=== PATIENT | female | born 1970 | race Caucasian/White ===

== ENCOUNTER → 2018-05-21 | Outpatient (CLI) | payer OTHER ==
[2018-05-21 09:38] LABS: FREE T4 0.89 NG/DL (0.76-1.46)
[2018-05-21 09:45] LABS: PROLACTIN 7.4 NG/ML
== END ==
LOC: M WUC 08:06
DX: N92.6 Irregular menstruation, unspecified (principal)

== ENCOUNTER → 2018-06-20 | Outpatient (CLI) | payer OTHER ==
[2018-06-20 17:27] LABS: TOTAL T3 117.7 NG/DL (60.0-181.0)
[2018-06-20 17:31] LABS: FREE T4 1.01 NG/DL (0.76-1.46)
== END ==
LOC: M WUC 14:09
DX: E04.1 Nontoxic single thyroid nodule (principal)
CPT/HCPCS: 84443

== ENCOUNTER → 2018-08-22 | Outpatient (CLI) | payer OTHER ==
[2018-08-22 16:27] LABS: MAGNESIUM LEVEL 2.3 MG/DL (1.8-2.4)
[2018-08-22 16:42] LABS: TOTAL 25(OH) VITAMIN D 25.5 NG/ML (30.0-100.0)
[2018-08-26 00:07] LABS: ANTI-PARIETAL CELL ANTIBODY 26.7 Units (0.0-20.0)
== END ==
LOC: M WUC 12:30
DX: K21.9 Gastro-esophageal reflux disease without esophagitis (principal); E53.8 Deficiency of other specified B group vitamins; E55.9 Vitamin D deficiency, unspecified; Z12.11 Encounter for screening for malignant neoplasm of colon; R14.1 Gas pain; K58.0 Irritable bowel syndrome with diarrhea
CPT/HCPCS: 83735

== ENCOUNTER → 2018-12-19 | Outpatient (CLI) | payer OTHER | LOC: M WUC 15:30 | PROVIDERS: ATTEND Physician Assistant | DX: E55.9 Vitamin D deficiency, unspecified (principal) ==

== ENCOUNTER → 2019-02-27 | Outpatient (CLI) | payer OTHER ==
[2019-02-27 19:40] LABS: BASO % 0.1 % (0.0-1.0); EOS # 0.1 10^3/uL (0.0-0.50); EOS % 0.6 % (0.0-3.0); HEMATOCRIT 36.7 % (36.0-47.0); HEMOGLOBIN 11.5 g/dl (12.0-15.5); LYMPH # 2.6 10^3/uL (1.5-4.5); LYMPH % 28.6 % (24.0-44.0); MEAN CORPUSCULAR HEMOGLOBIN 28.6 pg (27.0-33.0); MEAN CORPUSCULAR HGB CONC 31.3 g/dl (32.0-36.5); MEAN CORPUSCULAR VOLUME 91.3 fl (80.0-96.0); MONO # 0.6 10^3/uL (0.0-0.8); MONO % 6.7 % (0.0-5.0); NEUTROPHILS # 5.8 10^3/uL (1.8-7.7); NEUTROPHILS % 63.6 % (36.0-66.0); PLATELET COUNT, AUTOMATED 384 10^3/uL (150-450); RED BLOOD COUNT 4.02 10^6/uL (4.00-5.40); WHITE BLOOD COUNT 9.1 10^3/uL (4.0-10.0)
[2019-02-27 19:47] LABS: ALBUMIN 3.7 GM/DL (3.2-5.2); BILIRUBIN,TOTAL 0.3 MG/DL (0.2-1.0); CALCIUM LEVEL 8.5 MG/DL (8.5-10.1); CREATININE FOR GFR 1.08 MG/DL (0.55-1.30); FREE T4 0.94 NG/DL (0.76-1.46); GLOMERULAR FILTRATION RATE 57.6 (>58); POTASSIUM SERUM 4.4 MEQ/L (3.5-5.1); THYROID STIMULATING HORMONE 1.14 uIU/ML (0.358-3.740); TOTAL PROTEIN 6.9 GM/DL (6.4-8.2)
[2019-02-27 22:39] LABS: ERYTHROCYTE SEDIMENTATION RATE 21 mm/hr (0-20)
== END ==
LOC: M WUC 16:00
PROVIDERS: ATTEND Physician Assistant
DX: R59.9 Enlarged lymph nodes, unspecified (principal)

== ENCOUNTER → 2019-07-14 | Outpatient (CLI) | payer BC, OTHER ==
--- NOTE | 2019-07-14 19:25 | REP ---
FACIAL BONES: Five views of the facial bones are performed. The osseous structures are intact. No fracture or bone lesion is seen. The adenoids are not enlarged. Paranasal sinuses appear clear with no air fluid levels. IMPRESSION: Unremarkable radiographs of the facial bones. Electronically Signed by Osmany Aguirre MD 07/15/2019 05:01 P
== END ==
LOC: M WUC 18:08
PROVIDERS: ATTEND Physician Assistant
DX: L02.01 Cutaneous abscess of face (principal)

== ENCOUNTER → 2019-08-11 | Outpatient (CLI) | payer BC, OTHER ==
[2019-08-11 08:25] LABS: BASO % 0.3 % (0.0-1.0); EOS # 0.1 10^3/uL (0.0-0.5); EOS % 0.7 % (0.0-3.0); HEMATOCRIT 38.7 % (36.0-47.0); HEMOGLOBIN 12.2 g/dl (12.0-15.5); LYMPH # 1.6 10^3/uL (1.5-5.0); MEAN CORPUSCULAR HGB CONC 31.5 g/dl (32.0-36.5); MEAN CORPUSCULAR VOLUME 92.1 fl (80.0-96.0); MONO # 0.5 10^3/uL (0.0-0.8); MONO % 6.5 % (0.0-5.0); NEUTROPHILS # 4.8 10^3/uL (1.5-8.5); NEUTROPHILS % 69.2 % (36.0-66.0); PLATELET COUNT, AUTOMATED 385 10^3/uL (150-450)
[2019-08-11 08:53] LABS: ALBUMIN 3.6 GM/DL (3.2-5.2); ALT/SGPT 26 U/L (12-78); BILIRUBIN,TOTAL 0.5 MG/DL (0.2-1.0); BLOOD UREA NITROGEN 8 MG/DL (7-18); CARBON DIOXIDE LEVEL 28 MEQ/L (21-32); CHLORIDE LEVEL 108 MEQ/L (98-107); CREATININE FOR GFR 0.93 MG/DL (0.55-1.30); GLOMERULAR FILTRATION RATE > 60.0 (>58); GLUCOSE, FASTING 91 MG/DL (70-100); POTASSIUM SERUM 4.7 MEQ/L (3.5-5.1); SODIUM LEVEL 142 MEQ/L (136-145); TOTAL PROTEIN 7.1 GM/DL (6.4-8.2)
[2019-08-11 08:57] LABS: HCG, SERUM QUALITATIVE NEGATIVE (NEGATIVE)
== END ==
LOC: M LAB 07:40
PROVIDERS: ATTEND Otolaryngology
DX: D11.0 Benign neoplasm of parotid gland (principal)

== ENCOUNTER → 2019-09-25 | Outpatient (CLI) | payer OTHER, BC ==
[2019-09-25 16:58] LABS: MAGNESIUM LEVEL 2.3 MG/DL (1.8-2.4)
== END ==
LOC: M WUC 11:20
PROVIDERS: ATTEND Physician Assistant
DX: E53.8 Deficiency of other specified B group vitamins (principal); E55.9 Vitamin D deficiency, unspecified

== ENCOUNTER → 2020-08-29 | Outpatient (CLI) | payer OTHER, BC ==
[2020-08-29 17:01] LABS: PTH INTACT 41.1 PG/ML (18.5-88.0)
== END ==
LOC: M WUC 14:35
PROVIDERS: ATTEND Otolaryngology
DX: K11.8 Other diseases of salivary glands (principal)

== ENCOUNTER → 2021-03-09 | Outpatient (CLI) | payer BC, OTHER ==
[~2021-03-09] MED LIST: ISOVUE-370 76% 100ML VIAL As Ordered ONE
--- NOTE | 2021-03-09 09:26 | REP ---
INDICATION: DYSPHAGIA. 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 COMPARISON: Comparison soft tissue neck CT studies are reviewed. These include the most recent prior study from August 11, 2020 and prior studies dating back to August 09, 2015. Recent sonography September 01, 2020 is also reviewed. TECHNIQUE: Helical scanning is acquired following the intravenous injection of 75 mL of Isovue 370. 3 mm axial images re-formatted. Coronal and sagittal MPR images are provided. An opaque BB was placed at the area of interest over the right parotid gland region. FINDINGS: There is postoperative scarring along the lateral surface of the right parotid gland. This is unchanged. In the superior anterior aspect of the superficial lobe of the right parotid, there is a subtle slightly dense nodule in the parotid gland which measures 1.5 cm in greatest dimension on axial image by 1.0 by 0.8 cm in orthogonal plane dimensions. This is at the position of the opaque BB. It is felt to be visible in retrospect and unchanged from prior studies dating back to August 09, 2015. This is felt to correspond with the nodule seen on recent ultrasound. The the right parotid and the left parotid are otherwise unremarkable. Submandibular glands are normal and symmetric. There is no evidence of suprahyoid or infrahyoid adenopathy. Thyroid lobes are essentially homogeneous and stable. No vascular abnormality is seen. The lung apices are clear. No bony destructive lesion is seen. The nasopharynx hypopharynx, epiglottis and larynx are unremarkable. Glottic and subglottic airway appear intact. Peritonsillar soft tissues are unremarkable. No intraorbital abnormality is seen. Visualized intracranial structures are unremarkable. IMPRESSION: Subtle 1.5 cm slightly dense nodule in the anterior superior aspect of the superficial lobe of the right parotid gland. This is unchanged from prior studies. There is some dermal and subcutaneous postoperative fibrosis along the superficial lobe of the right parotid gland which is also unchanged. No evidence of adenopathy. No other evidence of neck mass. <Electronically signed by Travis Barreto > 03/09/21 0900
== END ==
LOC: M RAD 07:13
PROVIDERS: ATTEND Otolaryngology
DX: K11.8 Other diseases of salivary glands (principal)
CPT/HCPCS: 70491; Q9967

== ENCOUNTER → 2021-08-25 | Outpatient (CLI) | payer BC, OTHER ==
[2021-08-25 18:05] LABS: ALBUMIN 3.6 GM/DL (3.2-5.2); BILIRUBIN,TOTAL 0.4 MG/DL (0.2-1.0); CALCIUM LEVEL 8.6 MG/DL (8.5-10.1); CREATININE FOR GFR 1.09 MG/DL (0.55-1.30); GLOMERULAR FILTRATION RATE 56.3 (>51); MAGNESIUM LEVEL 2.3 MG/DL (1.8-2.4); POTASSIUM SERUM 3.8 MEQ/L (3.5-5.1); TOTAL PROTEIN 7.1 GM/DL (6.4-8.2)
[2021-08-25 18:12] LABS: TOTAL 25(OH) VITAMIN D 33.2 NG/ML (30.0-100.0)
== END ==
LOC: M LAB 16:47
PROVIDERS: ATTEND Nurse Practitioner Family
DX: K21.9 Gastro-esophageal reflux disease without esophagitis (principal)

== ENCOUNTER → 2023-01-21 | Outpatient (CLI) | payer BC, OTHER ==
[2023-01-21 17:27] LABS: TOTAL 25(OH) VITAMIN D 35.6 NG/ML (20.0-100.0)
== END ==
LOC: M WUC 13:42
PROVIDERS: ATTEND Internal Medicine Gastroenterology
DX: K21.9 Gastro-esophageal reflux disease without esophagitis (principal); Z12.11 Encounter for screening for malignant neoplasm of colon; E55.9 Vitamin D deficiency, unspecified

== ENCOUNTER → 2023-02-25 | Outpatient (CLI) | payer BC, OTHER ==
[~2023-02-25] MED LIST changes: -ISOVUE-370 76% 100ML VIAL As Ordered ONE; +PROHANCE 279.3MG/ML 15ML VIAL ONE; +PROHANCE 279.3MG/ML 5ML VIAL ONE
== END ==
LOC: M PLAIMG 08:59
DX: D11.0 Benign neoplasm of parotid gland (principal)
CPT/HCPCS: 70543; A9576

== ENCOUNTER → 2023-12-04 | Outpatient (REF) | payer BC, OTHER ==
[2023-12-04 17:53] LABS: MAGNESIUM LEVEL 2.2 MG/DL (1.8-2.4)
[2023-12-04 17:55] LABS: TOTAL 25(OH) VITAMIN D 29.6 NG/ML (20.0-100.0)
== END ==
LOC: M LABWUC 16:34
PROVIDERS: ATTEND Internal Medicine Gastroenterology
DX: Z12.11 Encounter for screening for malignant neoplasm of colon (principal); K21.9 Gastro-esophageal reflux disease without esophagitis

== ENCOUNTER → 2024-02-19 | Outpatient (CLI) | payer BC ==
[~2024-02-19] MED LIST changes: +PROHANCE 279.3MG/ML 15ML VIAL As Ordered ONE; -PROHANCE 279.3MG/ML 15ML VIAL ONE; +PROHANCE 279.3MG/ML 5ML VIAL As Ordered ONE; -PROHANCE 279.3MG/ML 5ML VIAL ONE
== END ==
LOC: M RAD 14:53
PROVIDERS: ATTEND Student in an Organized Health Care Education/Training Program
DX: D11.0 Benign neoplasm of parotid gland (principal)
CPT/HCPCS: 70543; A9576

== ENCOUNTER → 2024-08-20 | Outpatient (CLI) | payer BC | LOC: M WUC 15:23 | PROVIDERS: ATTEND Physician Assistant | DX: M54.9 Dorsalgia, unspecified (principal) ==

== ENCOUNTER → 2024-12-25 | Outpatient (CLI) | payer BC | LOC: M WHC 13:51 | PROVIDERS: ATTEND Obstetrics & Gynecology | DX: Z12.31 Encounter for screening mammogram for malignant neoplasm of breast (principal) ==

== ENCOUNTER → 2025-05-27 | Outpatient (CLI) | payer BC | LOC: M WUC 15:22 | PROVIDERS: ATTEND Physician Assistant | DX: M16.12 Unilateral primary osteoarthritis, left hip (principal); M79.605 Pain in left leg ==